=== PATIENT | male | born 1950 | race American Indian/Alaskan Native ===

== ENCOUNTER 2017-12-06 16:19 | Inpatient (IN) | payer MEDICARE, OTHER ==
[2017-12-06 17:23] LABS: Basophils # (Auto) 0.1 K/mm3 (0.0-0.1); Basophils % (Auto) 0.8 % (0.0-1.8); Eosinophils # (Auto) 0.1 K/mm3 (0.0-0.4); Eosinophils % (Auto) 1.7 % (0.0-4.3); Hematocrit 44.8 % (35.5-45.6); Hemoglobin 15.4 gm/dl (11.8-15.2); Lymphocytes # (Auto) 0.9 K/mm3 (1.2-5.4); Lymphocytes % (Auto) 11.4 % (13.4-35.0); Mean Corpuscular HGB Conc 34 % (32-34); Mean Corpuscular Hemoglobin 32 pg (28-32); Mean Corpuscular Volume 93 fl (84-94); Monocytes # (Auto) 0.4 K/mm3 (0.0-0.8); Monocytes % (Auto) 5.3 % (0.0-7.3); Platelet Count 308 K/mm3 (140-440); Red Blood Count 4.85 M/mm3 (3.65-5.03); Red Cell Distribution Width 12.3 % (13.2-15.2)
[2017-12-06 17:33] LABS: BUN/Creatinine Ratio 12; Blood Urea Nitrogen 12 mg/dL (9-20); Calcium 9.6 mg/dL (8.4-10.2); Hemolysis Index 7
[2017-12-06] MEDS ORDERED: ATROVENT IH ONE (17:42)
[2017-12-06] MEDS ORDERED: MAGNESIUM SULFATE 2GM/50ML 2 GM/50 ML BAG IV ONE (17:42)
[2017-12-06] MEDS ORDERED: PROVENTIL IH ONE (17:42)
--- NOTE | 2017-12-06 17:47 | Emergency Department Report ---
HPI - General Chief Complaint: Dyspnea/Respdistress Time Seen by Provider: 12/06/17 17:20 - HPI HPI: Room 3 The patient is a 66-year-old male presenting with a chief complaint of shortness of breath. The patient states the past 3 days he has had increased work of breathing. Reportedly nebulizes at home were not working. Patient denies cough fever or pain. Patient called EMS and was found to be hypoxic to 86% on room air. Patient was administered Solu-Medrol and albuterol en route to ED. Patient states she is feeling better at this moment Location: Lungs Duration: 3 days Quality: Shortness of breath Severity: Moderate Modifying factors: [see above] Context: [see above] Mode of transportation: [not driving] ED Past Medical Hx - Past Medical History Previous Medical History?: Yes Hx Asthma: Yes Hx COPD: Yes - Surgical History Past Surgical History?: Yes Additional Surgical History: Right lobectomy (indication unknown by patient). Partial bowel resection (secondary to "infection" per patient) - Family History Family history: no significant - Social History Smoking Status: Former Smoker (none 2 months) Substance Use Type: None - Medications Home Medications: Home Medications Medication Instructions Recorded Confirmed Last Taken Type ALBUTEROL Inhaler [Proair] 2 puff IH QID PRN #1 inhalation 12/06/17 Unknown Rx ALBUTEROL NEB's [Proventil 0.083% 2.5 mg IH TID PRN #90 ml 12/06/17 Unknown Rx NEBS] Prednisone [predniSONE 10 mg 10 mg PO .TAPER #1 tab.ds.pk 12/06/17 Unknown Rx (6-Day Pack, 21 Tabs)] ED Review of Systems ROS: Stated complaint: SOB Other details as noted in HPI Constitutional: denies: fever Eyes: denies: eye pain ENT: denies: throat pain Respiratory: shortness of breath, wheezing. denies: cough Cardiovascular: denies: chest pain Gastrointestinal: denies: abdominal pain Genitourinary: denies: dysuria Musculoskeletal: denies: back pain Neurological: denies: headache Physical Exam - Physical Exam Vital Signs: Vital Signs 12/06/17 12/06/17 16:45 16:53 Temperature 97.7 F 97.7 F Pulse Rate 90 90 Respiratory 22 22 Rate Blood Pressure 139/78 Blood Pressure 139/78 [Left] O2 Sat by Pulse 100 100 Oximetry Physical Exam: GENERAL: The patient is well-developed well-nourished male lying on stretcher not appearing to be in acute distress. [] HEENT: Normocephalic. Atraumatic. Extraocular motions are intact. Patient has moist mucous membranes. NECK: Supple. Trachea midline CHEST/LUNGS: Faint expiratory wheezing auscultated. There is no respiratory distress noted. HEART/CARDIOVASCULAR: Regular. There is no tachycardia. There is no gallop rub or murmur. ABDOMEN: Abdomen is soft, nontender. Patient has normal bowel sounds. There is no abdominal distention. SKIN: There is no rash. There is no edema. There is no diaphoresis. NEURO: The patient is awake, alert, and oriented. The patient is cooperative. The patient has normal speech MUSCULOSKELETAL: There is no evidence of acute injury. ED Course Vital Signs 12/06/17 12/06/17 16:45 16:53 Temperature 97.7 F 97.7 F Pulse Rate 90 90 Respiratory 22 22 Rate Blood Pressure 139/78 Blood Pressure 139/78 [Left] O2 Sat by Pulse 100 100 Oximetry - Reevaluation(s) Reevaluation #1: 12/06/17 18:24 Patient states he feels good ED Medical Decision Making - Lab Data Result diagrams: 12/06/17 17:09 12/06/17 17:09 Laboratory Tests 12/06/17 12/06/17 17:09 17:09 WBC 7.6 RBC 4.85 Hgb 15.4 H Hct 44.8 MCV 93 MCH 32 MCHC 34 RDW 12.3 L Plt Count 308 Lymph % (Auto) 11.4 L Lamar % (Auto) 5.3 Eos % (Auto) 1.7 Baso % (Auto) 0.8 Lymph # 0.9 L Lamar # 0.4 Eos # 0.1 Baso # 0.1 Seg Neutrophils % 80.8 H Seg Neutrophils # 6.2 Sodium 132 L Potassium 5.1 H Chloride 93.5 L Carbon Dioxide 33 H Anion Gap 11 BUN 12 Creatinine 1.0 Estimated GFR > 60 BUN/Creatinine Ratio 12 Glucose 100 Calcium 9.6 - EKG Data -: EKG Interpreted by Mn EKG shows normal: sinus rhythm Rate: normal - EKG Data When compared to previous EKG there are: previous EKG unavailable Interpretation: nonspecific ST-T wave milly (T-wave inversion in lead aVL) - Radiology Data Radiology results: image reviewed (chest x-ray) interpreted by me: Chest [id number] is slightly rotated. Slight paratracheal scarring appreciated. No definite focal infiltrates, no pneumothorax - Differential Diagnosis acute COPD exacerbation, pneumonia Critical care attestation.: If time is entered above; I have spent that time in minutes in the direct care of this critically ill patient, excluding procedure time. ED Disposition Clinical Impression: COPD exacerbation, Shortness of breath Disposition: DC-01 TO HOME OR SELFCARE Is pt being admited?: No Does the pt Need Aspirin: No Condition: Stable Instructions: Chronic Obstructive Pulmonary Disease (ED) Additional Instructions: Return to the emergency department immediately should you develop worsening symptoms, fever, inability to tolerate food or liquid or any other concerns. Prescriptions: ALBUTEROL Inhaler [Proair] 2 puff IH QID PRN #1 inhalation PRN Reason: Shortness Of Breath ALBUTEROL NEB's [Proventil 0.083% NEBS] 2.5 mg IH TID PRN #90 ml PRN Reason: Wheezing Prednisone [predniSONE 10 mg (6-Day Pack, 21 Tabs)] 10 mg PO .TAPER #1 tab.ds.pk Referrals: TERESO HENDERSON MD [Staff Physician] - 3-5 Days (Dr. Paul is a primary physician. Please follow up with him to be established as a patient) DAVE STEWART MD [Staff Physician] - 3-5 Days (Dr. Stewart is a gasket winder. Please follow-up with her for further evaluation) Time of Disposition: 18:27
--- NOTE | 2017-12-06 20:09 | History and Physical Report ---
History of Present Illness Chief complaint: My breathing is bad History of present illness: 66 YO Male with COPD, Asthma, presents to ED for evaluation. Pt states that he has experienced shortness of breath for the past 3 days with persistent symptoms over the same time frame. Pt symptoms have not improved with frequent nebulizer therapy. Pt acknowledges increased productive cough with yellow sputum , shortness of breath. EMS notified, and upon arrival the patient was found to have pulse oximetry of 88%. Pt transported to [facility] for evaluation. Pt seen and evaluated in ED and found have COPD Exacerbation complicated by acute respiratory failure. Pt admitted to medical floor. Pt denies fever, chills, CP, Palpitations, NVD, Syncope, BRBPR, Leg swelling, calf pain, hemoptysis, unintentional weight loss, or night sweats. Past History Past Medical History: COPD, other (asthma) Past Surgical History: Other (Lung surgery) Social history: . denies: smoking, alcohol abuse, prescription drug abuse Family history: hypertension Medications and Allergies Allergies Allergy/AdvReac Type Severity Reaction Status Date / Time No Known Allergies Allergy Unverified 12/06/17 17:00 Home Medications Medication Instructions Recorded Confirmed Last Taken Type ALBUTEROL Inhaler [Proair] 2 puff IH QID PRN #1 inhalation 12/06/17 Unknown Rx ALBUTEROL NEB's [Proventil 0.083% 2.5 mg IH TID PRN #90 ml 12/06/17 Unknown Rx NEBS] Prednisone [predniSONE 10 mg 10 mg PO .TAPER #1 tab.ds.pk 12/06/17 Unknown Rx (6-Day Pack, 21 Tabs)] Review of Systems Constitutional: no weight loss, no weight gain, no fever, no chills Ears, nose, mouth and throat: no ear pain, no ear discharge, no tinnitis, no decreased hearing, no nose pain, no nasal congestion, no nasal discharge Cardiovascular: no chest pain, no orthopnea, no palpitations, no rapid/ irregular heart beat, no edema Respiratory: cough with sputum, excessive sputum, shortness of breath, no hemoptysis Gastrointestinal: no abdominal pain, no nausea, no vomiting, no diarrhea Genitourinary Male: no hematuria, no flank pain, no discharge, no urinary frequency, no urinary hesitancy Rectal: no pain, no incontinence, no bleeding Musculoskeletal: no neck stiffness, no neck pain, no shooting arm pain, no arm numbness/tingling, no low back pain, no shooting leg pain Integumentary: no rash, no pruritis, no redness, no sores, no wounds, no jaundice Neurological: no transient paralysis, no paralysis, no weakness, no parathesias , no numbness, no tingling, no seizures Psychiatric: no anxiety, no memory loss, no change in sleep habits, no sleep disturbances, no insomnia Endocrine: no cold intolerance, no heat intolerance, no polyphagia, no excessive thirst, no polydipsia, no polyuria Hematologic/Lymphatic: no easy bruising, no easy bleeding, no lymphadenopathy, no lymphedema Allergic/Immunologic: no urticaria, no allergic rhinitis, no wheezing, no persistent infections, no anaphylaxis, no angioedema Exam - Constitutional Vitals: Temp Pulse Resp BP Pulse Ox 97.7 F 90 22 139/78 100 12/06/17 16:53 12/06/17 16:53 12/06/17 16:53 12/06/17 16:53 12/06/17 16:53 General appearance: Absent: no acute distress, mild distress, severe distress - EENT Eyes: Present: PERRL ENT: hearing intact, clear oral mucosa - Neck Neck: Present: supple, normal ROM - Respiratory Respiratory effort: labored Respiratory: bilateral: diminished - Cardiovascular Heart Sounds: Present: S1 & S2. Absent: rub, click - Extremities Extremities: pulses symmetrical, No edema Peripheral Pulses: within normal limits - Abdominal General gastrointestinal: Present: soft, non-tender, non-distended, normal bowel sounds Male genitourinary: Present: normal - Integumentary Integumentary: Present: clear, warm, dry - Musculoskeletal Musculoskeletal: gait normal, strength equal bilaterally - Psychiatric Psychiatric: appropriate mood/affect, intact judgment & insight - Neurologic Neurologic: CNII-XII intact, moves all extremities Results - Labs CBC & Chem 7: 12/06/17 17:09 12/06/17 17:09 Labs: Abnormal lab results 12/06/17 12/06/17 12/06/17 Range/Units 17:09 17:09 19:36 Hgb 15.4 H (11.8-15.2) gm/dl RDW 12.3 L (13.2-15.2) % Lymph % (Auto) 11.4 L (13.4-35.0) % Lymph # 0.9 L (1.2-5.4) K/mm3 Seg Neutrophils % 80.8 H (40.0-70.0) % POC ABG pH 7.349 L (7.35-7.45) POC ABG pCO2 56.6 H (35-45) POC ABG pO2 48 L (80-105) Sodium 132 L (137-145) mmol/L Potassium 5.1 H (3.6-5.0) mmol/L Chloride 93.5 L (98-107) mmol/L Carbon Dioxide 33 H (22-30) mmol/L Assessment and Plan - Patient Problems (1) COPD exacerbation Current Visit: Yes Status: Acute Plan to address problem: IV steroid therapy, supplemental oxygen, nebulizer therapy, empiric antibiotic therpay (2) Acute respiratory failure Current Visit: Yes Status: Acute Qualifiers: Respiratory failure complication: hypoxia Qualified Code(s): J96.01 - Acute respiratory failure with hypoxia Plan to address problem: Supplemental oxygen, nebulizer therapy, NIPPV as clinically indicated, pulse oximetry (3) DVT prophylaxis Current Visit: Yes Status: Acute Plan to address problem: scd to ble while in bed.
[2017-12-06] MEDS ORDERED: ZOFRAN IV PRN (20:10)
[2017-12-06] MEDS ORDERED: TYLENOL PO PRN (20:10)
[2017-12-06] MEDS ORDERED: SODIUM CHLORIDE FLUSH SYRINGE 10 ML IV PRN (20:10)
[2017-12-07] MEDS: SODIUM CHLORIDE FLUSH SYRINGE 10 ML IV SCH ×3 (00:30→22:36)
[2017-12-07] MEDS: PROVENTIL IH PRN ×3 (08:17→23:22)
[2017-12-07] MEDS ORDERED: ZITHROMAX 500 MG in NACL 0.9% 250ML 250 ML IV SCH (10:00)
--- NOTE | 2017-12-07 13:34 | Progress Note ---
Assessment and Plan /COPD exacerbation IV steroid therapy, supplemental oxygen, nebulizer therapy, empiric antibiotic therpay / Acute respiratory failure due to COPD exacerbation Supplemental oxygen, nebulizer therapy, NIPPV as clinically indicated, pulse oximetry /Hyperkalemia Order NaHco3, Calcium gluconate, insulin/D50, kayexalate repeat BMP / DVT prophylaxis scd to ble while in bed. Subjective Date of service: 12/07/17 Interval history: Pt seen and examined c/o SOB with minimal exertion Objective - Exam Narrative Exam: General appearance: Absent: no acute distress, mild distress, severe distress - EENT Eyes: Present: PERRL ENT: hearing intact, clear oral mucosa - Neck Neck: Present: supple, normal ROM - Respiratory Respiratory effort: labored Respiratory: bilateral: diminished - Cardiovascular Heart Sounds: Present: S1 & S2. Absent: rub, click - Extremities Extremities: pulses symmetrical, No edema Peripheral Pulses: within normal limits - Abdominal General gastrointestinal: Present: soft, non-tender, non-distended, normal bowel sounds Male genitourinary: Present: normal - Integumentary Integumentary: Present: clear, warm, dry - Musculoskeletal Musculoskeletal: gait normal, strength equal bilaterally - Psychiatric Psychiatric: appropriate mood/affect, intact judgment & insight - Neurologic Neurologic: CNII-XII intact, moves all extremities - Constitutional Vitals: Vital Signs - 12hr 12/07/17 12/07/17 12/07/17 08:02 08:03 08:22 Temperature 97.8 F 97.8 F Pulse Rate 90 88 Pulse Rate [ Anterior Bilateral Throughout] Respiratory 18 18 Rate Respiratory Rate [Anterior Bilateral Throughout] Blood Pressure 147/83 O2 Sat by Pulse 86 97 81 L Oximetry 12/07/17 12/07/17 08:24 08:36 Temperature Pulse Rate Pulse Rate [ 81 83 Anterior Bilateral Throughout] Respiratory Rate Respiratory 19 21 Rate [Anterior Bilateral Throughout] Blood Pressure O2 Sat by Pulse Oximetry - Labs CBC & Chem 7: 12/06/17 17:09 12/07/17 13:57 Labs: Abnormal lab results 12/06/17 12/06/17 12/06/17 Range/Units 17:09 17:09 19:36 Hgb 15.4 H (11.8-15.2) gm/dl RDW 12.3 L (13.2-15.2) % Lymph % (Auto) 11.4 L (13.4-35.0) % Lymph # 0.9 L (1.2-5.4) K/mm3 Seg Neutrophils % 80.8 H (40.0-70.0) % POC ABG pH 7.349 L (7.35-7.45) POC ABG pCO2 56.6 H (35-45) POC ABG pO2 48 L (80-105) Sodium 132 L (137-145) mmol/L Potassium 5.1 H (3.6-5.0) mmol/L Chloride 93.5 L (98-107) mmol/L Carbon Dioxide 33 H (22-30) mmol/L
[2017-12-07 14:34] LABS: BUN/Creatinine Ratio 21; Blood Urea Nitrogen 21 mg/dL (9-20); Calcium 9.3 mg/dL (8.4-10.2); Hemolysis Index 29
[2017-12-07] MEDS ORDERED: DULCOLAX PR PRN (21:48)
[2017-12-08] MEDS ORDERED: CALCIUM CHLORIDE 1,000 MG in NACL 0.9% 100 ML IV ONE (03:03)
[2017-12-08] MEDS ORDERED: KIONEX PO PRN (03:03)
[2017-12-08] MEDS ORDERED: D50W (25GM) Vial IV ONE (03:03)
[2017-12-08] MEDS ORDERED: HumuLIN R IV ONE (03:03)
[2017-12-08] MEDS ORDERED: SODIUM BICARBONATE IV ONE (03:03)
[2017-12-08] MEDS: PROVENTIL IH PRN (03:25)
[2017-12-08] MEDS ORDERED: D50W (25GM) Syringe IV ONE (05:00)
[2017-12-08] MEDS ORDERED: DUONEB *Not for PRN Use IH SCH (06:00)
[2017-12-08 08:04] LABS: BUN/Creatinine Ratio 25; Blood Urea Nitrogen 25 mg/dL (9-20); Calcium 11.1 mg/dL (8.4-10.2); Hemolysis Index 4
--- NOTE | 2017-12-08 09:08 | Progress Note ---
Assessment and Plan Assessment and plan: --Hyperkalemia Calcium chloride,kayexalate IV insulin and dextrose,closely monitor the levels --COPD exacerbation IV steroid therapy, supplemental oxygen, nebulizer therapy, empiric antibiotic therpay -- Acute hypoxic respiratory failure due to COPD exacerbation Supplemental oxygen, nebulizer therapy, NIPPV as clinically indicated, pulse oximetry -- DVT prophylaxis scd to ble while in bed. History Interval history: Patient seen and evaluated medical records reviewed Admitted with acute hypoxic respiratory failure COPD exacerbation Physical sites are better No new complaints Vital signs reviewed Hospitalist Physical - Constitutional Vitals: Temp Pulse Resp BP Pulse Ox 98.0 F 66 18 135/64 100 12/08/17 07:25 12/08/17 07:24 12/08/17 03:52 12/08/17 07:24 12/08/17 07:24 General appearance: Present: no acute distress, well-nourished - EENT Eyes: Present: PERRL, EOM intact - Neck Neck: Present: supple, normal ROM - Respiratory Respiratory effort: normal Respiratory: bilateral: diminished, wheezing, negative: rales, rhonchi - Cardiovascular Rhythm: regular Heart Sounds: Present: S1 & S2 - Extremities Extremities: no ischemia, No edema - Abdominal General gastrointestinal: soft, non-tender, non-distended, normal bowel sounds - Integumentary Integumentary: Present: clear, warm - Psychiatric Psychiatric: appropriate mood/affect, cooperative - Neurologic Neurologic: CNII-XII intact, moves all extremities Results - Labs CBC & Chem 7: 12/06/17 17:09 12/08/17 05:58 Labs: Laboratory Last Values WBC 7.6 K/mm3 (4.5-11.0) 12/06/17 17:09 RBC 4.85 M/mm3 (3.65-5.03) 12/06/17 17:09 Hgb 15.4 gm/dl (11.8-15.2) H 12/06/17 17:09 Hct 44.8 % (35.5-45.6) 12/06/17 17:09 MCV 93 fl (84-94) 12/06/17 17:09 MCH 32 pg (28-32) 12/06/17 17:09 MCHC 34 % (32-34) 12/06/17 17:09 RDW 12.3 % (13.2-15.2) L 12/06/17 17:09 Plt Count 308 K/mm3 (140-440) 12/06/17 17:09 Lymph % (Auto) 11.4 % (13.4-35.0) L 12/06/17 17:09 Major % (Auto) 5.3 % (0.0-7.3) 12/06/17 17:09 Eos % (Auto) 1.7 % (0.0-4.3) 12/06/17 17:09 Baso % (Auto) 0.8 % (0.0-1.8) 12/06/17 17:09 Lymph # 0.9 K/mm3 (1.2-5.4) L 12/06/17 17:09 Major # 0.4 K/mm3 (0.0-0.8) 12/06/17 17:09 Eos # 0.1 K/mm3 (0.0-0.4) 12/06/17 17:09 Baso # 0.1 K/mm3 (0.0-0.1) 12/06/17 17:09 Seg Neutrophils % 80.8 % (40.0-70.0) H 12/06/17 17:09 Seg Neutrophils # 6.2 K/mm3 (1.8-7.7) 12/06/17 17:09 POC ABG pH 7.349 (7.35-7.45) L 12/06/17 19:36 POC ABG pCO2 56.6 (35-45) H 12/06/17 19:36 POC ABG pO2 48 (80-105) L 12/06/17 19:36 POC ABG HCO3 31.1 12/06/17 19:36 POC ABG Total CO2 33 12/06/17 19:36 POC ABG O2 Sat 80 12/06/17 19:36 POC ABG Base Excess 6 12/06/17 19:36 FiO2 21 % 12/06/17 19:36 Sodium 131 mmol/L (137-145) L 12/08/17 05:58 Potassium 5.6 mmol/L (3.6-5.0) H 12/08/17 05:58 Chloride 83.3 mmol/L (98-107) L 12/08/17 05:58 Carbon Dioxide 36 mmol/L (22-30) H D 12/08/17 05:58 Anion Gap 17 mmol/L 12/08/17 05:58 BUN 25 mg/dL (9-20) H 12/08/17 05:58 Creatinine 1.0 mg/dL (0.8-1.5) 12/08/17 05:58 Estimated GFR > 60 ml/min 12/08/17 05:58 BUN/Creatinine Ratio 25 % 12/08/17 05:58 Glucose 145 mg/dL (75-100) H 12/08/17 05:58 Calcium 11.1 mg/dL (8.4-10.2) H D 12/08/17 05:58
[2017-12-08] MEDS: DUONEB *Not for PRN Use IH SCH ×3 (09:26→20:12)
[2017-12-08] MEDS: SODIUM CHLORIDE FLUSH SYRINGE 10 ML IV SCH ×2 (10:58→22:20)
[2017-12-08] MEDS: ZITHROMAX PO SCH (10:58)
--- NOTE | 2017-12-08 11:05 | Consultation ---
History of Present Illness Consult date: 12/08/17 Requesting physician: LYNDA AGUILERA Reason for consult: COPD, hypoxemia History of present illness: 66 YO Male with COPD, Asthma, presents to ED for evaluation. Pt states that he has experienced shortness of breath for the past 3 days with persistent symptoms over the same time frame. Pt symptoms have not improved with frequent nebulizer therapy. Pt acknowledges increased productive cough with yellow sputum , shortness of breath. EMS notified, and upon arrival the patient was found to have pulse oximetry of 88%. Pt transported to [facility] for evaluation. Pt seen and evaluated in ED and found have COPD Exacerbation complicated by acute respiratory failure. Pt admitted to medical floor. Pt denies fever, chills, CP, Palpitations, NVD, Syncope, BRBPR, Leg swelling, calf pain, hemoptysis, unintentional weight loss, or night sweats. Patient seen and examined. Vitals, labs, medications, chart and imaging reviewed. REVIEW OF SYSTEMS Constitutional: no weight loss, no weight gain, no fever, no chills Ears, nose, mouth and throat: no ear pain, no ear discharge, no tinnitis, no decreased hearing, no nose pain, no nasal congestion, no nasal discharge Cardiovascular: no chest pain, no orthopnea, no palpitations, no rapid/ irregular heart beat, no edema Respiratory: cough with sputum, excessive sputum, shortness of breath, no hemoptysis Gastrointestinal: no abdominal pain, no nausea, no vomiting, no diarrhea Genitourinary Male: no hematuria, no flank pain, no discharge, no urinary frequency, no urinary hesitancy Rectal: no pain, no incontinence, no bleeding Musculoskeletal: no neck stiffness, no neck pain, no shooting arm pain, no arm numbness/tingling, no low back pain, no shooting leg pain Integumentary: no rash, no pruritis, no redness, no sores, no wounds, no jaundice Neurological: no transient paralysis, no paralysis, no weakness, no parathesias , no numbness, no tingling, no seizures Psychiatric: no anxiety, no memory loss, no change in sleep habits, no sleep disturbances, no insomnia Endocrine: no cold intolerance, no heat intolerance, no polyphagia, no excessive thirst, no polydipsia, no polyuria Hematologic/Lymphatic: no easy bruising, no easy bleeding, no lymphadenopathy, no lymphedema Allergic/Immunologic: no urticaria, no allergic rhinitis, no wheezing, no persistent infections, no anaphylaxis, no angioedema Past History Past Medical History: COPD, other (asthma) Past Surgical History: Other (Lung surgery) Social history: . denies: smoking, alcohol abuse, prescription drug abuse Family history: hypertension Medications and Allergies Allergies Allergy/AdvReac Type Severity Reaction Status Date / Time No Known Allergies Allergy Unverified 12/06/17 17:00 Home Medications Medication Instructions Recorded Confirmed Last Taken Type ALBUTEROL Inhaler [Proair] 2 puff IH QID PRN #1 inhalation 12/06/17 Unknown Rx ALBUTEROL NEB's [Proventil 0.083% 2.5 mg IH TID PRN #90 ml 12/06/17 Unknown Rx NEBS] Prednisone [predniSONE 10 mg 10 mg PO .TAPER #1 tab.ds.pk 12/06/17 Unknown Rx (6-Day Pack, 21 Tabs)] ALBUTEROL Inhaler [ProAir HFA 2 puff IH QID PRN #1 inhalation 12/11/17 Unknown Rx Inhaler] Azithromycin [Zithromax Z-LORENZO] 0 mg PO DAILY #1 tab 12/11/17 Unknown Rx Prednisone [predniSONE 10 mg 10 mg PO .TAPER #1 tab.ds.pk 12/11/17 Unknown Rx (6-Day Pack, 21 Tabs)] Active Meds: Active Medications Acetaminophen (Tylenol) 650 mg PO Q4H PRN PRN Reason: Pain MILD(1-3)/Fever >100.5/LONG Albuterol (Proventil) 2.5 mg IH Q4HRT PRN PRN Reason: Shortness Of Breath Last Admin: 12/08/17 03:25 Dose: 2.5 mg Albuterol/Ipratropium (Duoneb *Not For Prn Use*) 1 ampul IH Q6HRT [facility] Last Admin: 12/08/17 09:26 Dose: 1 ampul Azithromycin (Zithromax) 500 mg PO QDAY [facility] Last Admin: 12/08/17 10:58 Dose: 500 mg Bisacodyl (Dulcolax) 10 mg MS QDAY PRN PRN Reason: Constipation Enoxaparin Sodium (Lovenox) 40 mg SUB-Q QDAY@2200 [facility] Methylprednisolone Sodium Succinate (Solu-Medrol) 40 mg IV Q8HR [facility] Last Admin: 12/08/17 06:39 Dose: 40 mg Ondansetron HCl (Zofran) 4 mg IV Q8H PRN PRN Reason: Nausea And Vomiting Sodium Chloride (Sodium Chloride Flush Syringe 10 Ml) 10 ml IV BID [facility] Last Admin: 12/08/17 10:58 Dose: 10 ml Sodium Chloride (Sodium Chloride Flush Syringe 10 Ml) 10 ml IV PRN PRN PRN Reason: LINE FLUSH Sodium Polystyrene Sulfonate (Kionex) 15 gm PO Q6H PRN PRN Reason: Hyperkalemia Physical Examination Vital signs: Vital Signs Temp Pulse Resp BP Pulse Ox 97.7 F 90 22 139/78 100 12/06/17 16:45 12/06/17 16:45 12/06/17 16:45 12/06/17 16:45 12/06/17 16:45 Constitutional: alert, appears uncomfortable, other (elderly AAM, atraumatic, normocephalic with mild to moderately increased work of breathing at rest) Eyes: non-icteric ENT: oropharynx moist Neck: supple, no JVD Effort: mildly labored Ascultation: Bilateral: diminished breath sounds, wheezes (expiratory) Percussion: Bilateral: not dull Cardiovascular: regular rate and rhythm, other (No R/M) Gastrointestinal: normoactive bowel sounds, soft, non-tender, non-distended Integumentary: normal Extremities: no cyanosis, no edema, pulses normal, no ischemia or petechiae Neurologic: normal mental status, non-focal exam, pupils equal and round, motor strength normal and Psychiatric: mood appropriate, affect normal Results - Laboratory Findings CBC and BMP: 12/06/17 17:09 12/11/17 06:34 ABG POC ABG pH 7.349 (7.35-7.45) L 12/06/17 19:36 POC ABG pCO2 56.6 (35-45) H 12/06/17 19:36 POC ABG pO2 48 (80-105) L 12/06/17 19:36 POC ABG HCO3 31.1 12/06/17 19:36 POC ABG Total CO2 33 12/06/17 19:36 POC ABG O2 Sat 80 12/06/17 19:36 Abnormal lab findings: Abnormal Labs 12/06/17 12/06/17 12/06/17 17:09 17:09 19:36 Hgb 15.4 H RDW 12.3 L Lymph % (Auto) 11.4 L Lymph # 0.9 L Seg Neutrophils % 80.8 H POC ABG pH 7.349 L POC ABG pCO2 56.6 H POC ABG pO2 48 L Sodium 132 L Potassium 5.1 H Chloride 93.5 L Carbon Dioxide 33 H BUN Glucose Calcium 12/07/17 12/08/17 13:57 05:58 Hgb RDW Lymph % (Auto) Lymph # Seg Neutrophils % POC ABG pH POC ABG pCO2 POC ABG pO2 Sodium 133 L 131 L Potassium 6.0 H 5.6 H Chloride 93.5 L 83.3 L Carbon Dioxide 36 H D BUN 21 H 25 H Glucose 168 H 145 H Calcium 11.1 H D - Diagnostic Findings Chest x-ray: image reviewed Assessment and Plan Acute hypoxemic/hypercapnic respiratory failure AE-COPD Hyperkalemia Metabolic alkalosis Tobacco abuse disorder Abnormal CXR -Continue with supplemental oxygen -NIPPV as indicated -Antibiotics -Bronchodilators -Steroids with accucheck and glycemic control -VTE prophylaxis -Smoking cessation counselling. Encouraged to stay quit - PT/OT/Mobility -
[2017-12-08] MEDS: LOVENOX SUB-Q SCH (22:30)
[2017-12-09] MEDS: DUONEB *Not for PRN Use IH SCH ×4 (02:41→20:14)
[2017-12-09 06:58] LABS: BUN/Creatinine Ratio 30; Blood Urea Nitrogen 30 mg/dL (9-20); Calcium 10.2 mg/dL (8.4-10.2); Hemolysis Index 9
[2017-12-09] MEDS: SODIUM CHLORIDE FLUSH SYRINGE 10 ML IV SCH (09:43)
[2017-12-09] MEDS: ZITHROMAX PO SCH (09:43)
[2017-12-09] MEDS ORDERED: KIONEX PO ONE (11:40)
--- NOTE | 2017-12-09 11:42 | Progress Note ---
Assessment and Plan Assessment and plan: --Hyperkalemia Kayexalate, closely monitor potassium levels and adjust treatment --COPD exacerbation Tapering doses of IV steroid therapy, supplemental oxygen, nebulizer therapy, empiric antibiotic therpay --Acute bronchitis/pneumonitis; due to acute exacerbation of COPD Continue empiric antibiotics -- Acute hypoxic respiratory failure due to COPD exacerbation, Supplemental oxygen, nebulizer therapy, NIPPV as clinically indicated, pulse oximetry --Patient is hypoxemic, room air and ambulating O2 sats less than 87% DC planning per case management, home health service Patient needs Home oxygen, 2-3 L nasal cannula oxygen at discharge -- DVT prophylaxis scd to ble while in bed. Possible discharge in 1-2 days if stable History Interval history: Patient seen and examined medical records reviewed Feels slightly better Complains of mild shortness of breath Looks chronically ill and cachectic Vital signs reviewed Hospitalist Physical - Constitutional Vitals: Temp Pulse Resp BP Pulse Ox 97.9 F 86 18 139/79 97 12/09/17 07:44 12/09/17 09:24 12/09/17 09:24 12/09/17 07:44 12/09/17 09:14 General appearance: Present: no acute distress, cachectic, disheveled - EENT Eyes: Present: PERRL, EOM intact - Neck Neck: Present: supple, normal ROM - Respiratory Respiratory effort: normal Respiratory: bilateral: diminished, wheezing, negative: rales, rhonchi - Cardiovascular Rhythm: regular Heart Sounds: Present: S1 & S2 - Extremities Extremities: no ischemia, No edema - Abdominal General gastrointestinal: soft, non-tender, non-distended, normal bowel sounds - Integumentary Integumentary: Present: clear, warm - Psychiatric Psychiatric: appropriate mood/affect, cooperative - Neurologic Neurologic: moves all extremities Results - Labs CBC & Chem 7: 12/06/17 17:09 12/09/17 05:53 Labs: Laboratory Last Values WBC 7.6 K/mm3 (4.5-11.0) 12/06/17 17:09 RBC 4.85 M/mm3 (3.65-5.03) 12/06/17 17:09 Hgb 15.4 gm/dl (11.8-15.2) H 12/06/17 17:09 Hct 44.8 % (35.5-45.6) 12/06/17 17:09 MCV 93 fl (84-94) 12/06/17 17:09 MCH 32 pg (28-32) 12/06/17 17:09 MCHC 34 % (32-34) 12/06/17 17:09 RDW 12.3 % (13.2-15.2) L 12/06/17 17:09 Plt Count 308 K/mm3 (140-440) 12/06/17 17:09 Lymph % (Auto) 11.4 % (13.4-35.0) L 12/06/17 17:09 [place] % (Auto) 5.3 % (0.0-7.3) 12/06/17 17:09 Eos % (Auto) 1.7 % (0.0-4.3) 12/06/17 17:09 Baso % (Auto) 0.8 % (0.0-1.8) 12/06/17 17:09 Lymph # 0.9 K/mm3 (1.2-5.4) L 12/06/17 17:09 [place] # 0.4 K/mm3 (0.0-0.8) 12/06/17 17:09 Eos # 0.1 K/mm3 (0.0-0.4) 12/06/17 17:09 Baso # 0.1 K/mm3 (0.0-0.1) 12/06/17 17:09 Seg Neutrophils % 80.8 % (40.0-70.0) H 12/06/17 17:09 Seg Neutrophils # 6.2 K/mm3 (1.8-7.7) 12/06/17 17:09 POC ABG pH 7.349 (7.35-7.45) L 12/06/17 19:36 POC ABG pCO2 56.6 (35-45) H 12/06/17 19:36 POC ABG pO2 48 (80-105) L 12/06/17 19:36 POC ABG HCO3 31.1 12/06/17 19:36 POC ABG Total CO2 33 12/06/17 19:36 POC ABG O2 Sat 80 12/06/17 19:36 POC ABG Base Excess 6 12/06/17 19:36 FiO2 21 % 12/06/17 19:36 Sodium 131 mmol/L (137-145) L 12/09/17 05:53 Potassium 5.9 mmol/L (3.6-5.0) H 12/09/17 05:53 Chloride 84.4 mmol/L (98-107) L 12/09/17 05:53 Carbon Dioxide 35 mmol/L (22-30) H 12/09/17 05:53 Anion Gap 18 mmol/L 12/09/17 05:53 BUN 30 mg/dL (9-20) H 12/09/17 05:53 Creatinine 1.0 mg/dL (0.8-1.5) 12/09/17 05:53 Estimated GFR > 60 ml/min 12/09/17 05:53 BUN/Creatinine Ratio 30 % 12/09/17 05:53 Glucose 106 mg/dL (75-100) H 12/09/17 05:53 Calcium 10.2 mg/dL (8.4-10.2) 12/09/17 05:53 Magnesium 2.40 mg/dL (1.7-2.3) H 12/09/17 05:53
[2017-12-09] MEDS ORDERED: MILK OF MAGNESIA PO PRN (11:43)
--- NOTE | 2017-12-09 12:05 | Progress Note ---
Assessment and Plan Assessment and plan: --Hyperkalemia Calcium chloride,kayexalate IV insulin and dextrose,closely monitor the levels --COPD exacerbation IV steroid therapy, supplemental oxygen, nebulizer therapy, empiric antibiotic therpay -- Acute hypoxic respiratory failure due to COPD exacerbation Supplemental oxygen, nebulizer therapy, NIPPV as clinically indicated, pulse oximetry -- DVT prophylaxis scd to ble while in bed. Hospitalist Physical - Constitutional Vitals: Temp Pulse Resp BP Pulse Ox 97.9 F 86 18 139/79 97 12/09/17 07:44 12/09/17 09:24 12/09/17 09:24 12/09/17 07:44 12/09/17 09:14 General appearance: Present: no acute distress, well-nourished Results - Labs CBC & Chem 7: 12/06/17 17:09 12/09/17 05:53 Labs: Laboratory Last Values WBC 7.6 K/mm3 (4.5-11.0) 12/06/17 17:09 RBC 4.85 M/mm3 (3.65-5.03) 12/06/17 17:09 Hgb 15.4 gm/dl (11.8-15.2) H 12/06/17 17:09 Hct 44.8 % (35.5-45.6) 12/06/17 17:09 MCV 93 fl (84-94) 12/06/17 17:09 MCH 32 pg (28-32) 12/06/17 17:09 MCHC 34 % (32-34) 12/06/17 17:09 RDW 12.3 % (13.2-15.2) L 12/06/17 17:09 Plt Count 308 K/mm3 (140-440) 12/06/17 17:09 Lymph % (Auto) 11.4 % (13.4-35.0) L 12/06/17 17:09 [place] % (Auto) 5.3 % (0.0-7.3) 12/06/17 17:09 Eos % (Auto) 1.7 % (0.0-4.3) 12/06/17 17:09 Baso % (Auto) 0.8 % (0.0-1.8) 12/06/17 17:09 Lymph # 0.9 K/mm3 (1.2-5.4) L 12/06/17 17:09 [place] # 0.4 K/mm3 (0.0-0.8) 12/06/17 17:09 Eos # 0.1 K/mm3 (0.0-0.4) 12/06/17 17:09 Baso # 0.1 K/mm3 (0.0-0.1) 12/06/17 17:09 Seg Neutrophils % 80.8 % (40.0-70.0) H 12/06/17 17:09 Seg Neutrophils # 6.2 K/mm3 (1.8-7.7) 12/06/17 17:09 POC ABG pH 7.349 (7.35-7.45) L 12/06/17 19:36 POC ABG pCO2 56.6 (35-45) H 12/06/17 19:36 POC ABG pO2 48 (80-105) L 12/06/17 19:36 POC ABG HCO3 31.1 12/06/17 19:36 POC ABG Total CO2 33 12/06/17 19:36 POC ABG O2 Sat 80 12/06/17 19:36 POC ABG Base Excess 6 12/06/17 19:36 FiO2 21 % 12/06/17 19:36 Sodium 131 mmol/L (137-145) L 12/09/17 05:53 Potassium 5.9 mmol/L (3.6-5.0) H 12/09/17 05:53 Chloride 84.4 mmol/L (98-107) L 12/09/17 05:53 Carbon Dioxide 35 mmol/L (22-30) H 12/09/17 05:53 Anion Gap 18 mmol/L 12/09/17 05:53 BUN 30 mg/dL (9-20) H 12/09/17 05:53 Creatinine 1.0 mg/dL (0.8-1.5) 12/09/17 05:53 Estimated GFR > 60 ml/min 12/09/17 05:53 BUN/Creatinine Ratio 30 % 12/09/17 05:53 Glucose 106 mg/dL (75-100) H 12/09/17 05:53 Calcium 10.2 mg/dL (8.4-10.2) 12/09/17 05:53 Magnesium 2.40 mg/dL (1.7-2.3) H 12/09/17 05:53
--- NOTE | 2017-12-09 14:07 | Progress Note ---
Assessment and Plan Acute hypoxemic/hypercapnic respiratory failure AE-COPD Hyperkalemia Metabolic alkalosis Tobacco abuse disorder Abnormal CXR -Continue with supplemental oxygen - Continue NIPPV as indicated - Continue Antibiotics - Continue Bronchodilators -Steroids with accucheck and glycemic control -VTE prophylaxis -Smoking cessation counselling. Encouraged to stay quit - PT/OT/Mobility - Needs outpatient pulmonary follow up within 7 days of discharge -Patient and his daughter updated re care plan. -Home oxygen evaluation on discharge -Discussed care plan with hospitalist service, RT and RN Subjective Date of service: 12/09/17 Principal diagnosis: Acute hypoxic respiratory failure, COPD with acute exacerbation Interval history: Seen and examined at bedside; 24hour events reviewed; nursing and respiratory care staff consulted; no adverse overnight events reported to me; still SOB; complains of ANDRES with 5-10 yards walk; no acute chest pains; feels betterNo hemoptysis Objective - Exam Narrative Exam: General appearance: Absent: no acute distress, mild distress - EENT Eyes: Present: PERRL ENT: hearing intact, clear oral mucosa - Neck Neck: Present: supple, normal ROM - Respiratory Respiratory effort: labored Respiratory: bilateral: diminished, expiratory wheeze - Cardiovascular Heart Sounds: Present: S1 & S2. Absent: rub, click - Extremities Extremities: pulses symmetrical, No edema Peripheral Pulses: within normal limits - Abdominal General gastrointestinal: Present: soft, non-tender, non-distended, normal bowel sounds Male genitourinary: Present: normal - Integumentary Integumentary: Present: clear, warm, dry - Musculoskeletal Musculoskeletal: gait normal, strength equal bilaterally - Psychiatric Psychiatric: appropriate mood/affect, intact judgment & insight - Neurologic Neurologic: CNII-XII intact, moves all extremities Vital Signs - 12hr 12/09/17 12/09/17 12/09/17 02:42 07:44 09:14 Temperature 97.9 F Pulse Rate 72 Pulse Rate [ 86 80 Anterior Bilateral Throughout] Respiratory 18 Rate Respiratory 18 18 Rate [Anterior Bilateral Throughout] Blood Pressure 139/79 O2 Sat by Pulse 96 97 Oximetry 12/09/17 12/09/17 12/09/17 09:24 13:23 13:33 Temperature Pulse Rate Pulse Rate [ 86 98 H 94 H Anterior Bilateral Throughout] Respiratory Rate Respiratory 18 20 20 Rate [Anterior Bilateral Throughout] Blood Pressure O2 Sat by Pulse Oximetry CBC and BMP: 12/06/17 17:09 12/11/17 06:34 ABG, PT/INR, D-dimer: ABG POC ABG pH 7.349 (7.35-7.45) L 12/06/17 19:36 POC ABG pCO2 56.6 (35-45) H 12/06/17 19:36 POC ABG pO2 48 (80-105) L 12/06/17 19:36 POC ABG HCO3 31.1 12/06/17 19:36 POC ABG Total CO2 33 12/06/17 19:36 POC ABG O2 Sat 80 12/06/17 19:36 Abnormal lab findings: Abnormal Labs 12/06/17 12/06/17 12/06/17 17:09 17:09 19:36 Hgb 15.4 H RDW 12.3 L Lymph % (Auto) 11.4 L Lymph # 0.9 L Seg Neutrophils % 80.8 H POC ABG pH 7.349 L POC ABG pCO2 56.6 H POC ABG pO2 48 L Sodium 132 L Potassium 5.1 H Chloride 93.5 L Carbon Dioxide 33 H BUN Glucose Calcium Magnesium 12/07/17 12/08/17 12/09/17 13:57 05:58 05:53 Hgb RDW Lymph % (Auto) Lymph # Seg Neutrophils % POC ABG pH POC ABG pCO2 POC ABG pO2 Sodium 133 L 131 L 131 L Potassium 6.0 H 5.6 H 5.9 H Chloride 93.5 L 83.3 L 84.4 L Carbon Dioxide 36 H D 35 H BUN 21 H 25 H 30 H Glucose 168 H 145 H 106 H Calcium 11.1 H D Magnesium 2.40 H Chest x-ray: image reviewed Allied health notes reviewed: RT
[2017-12-09] MEDS ORDERED: CITRATE OF MAGNESIA PO ONE (14:28)
[2017-12-10] MEDS: LOVENOX SUB-Q SCH ×2 (00:45→22:44)
[2017-12-10] MEDS: DUONEB *Not for PRN Use IH SCH ×4 (02:02→21:59)
[2017-12-10 07:27] LABS: BUN/Creatinine Ratio 26; Blood Urea Nitrogen 26 mg/dL (9-20); Calcium 9.4 mg/dL (8.4-10.2); Hemolysis Index 4
[2017-12-10] MEDS: ZITHROMAX PO SCH (11:13)
[2017-12-10] MEDS: KIONEX PO ONE ×2 (11:14→12:32)
[2017-12-10] MEDS: SODIUM CHLORIDE FLUSH SYRINGE 10 ML IV SCH (11:16)
--- NOTE | 2017-12-10 14:02 | Progress Note ---
Assessment and Plan Acute Hypoxemic Respiratory Failure Acute COPD exacerbation Hyperkalemia Abnormal CXR - kayexalate given - continue systemic steroids (increase to 40mg IV bid X 2 doses then overlap with p.o. prednisone in am) - Added brovana & pulmicort - continue empiric CAP AB's - add pepcid for GI prophylaxis - Flu & pneumovax per protocol - continued tobacco abstinence encouraged ..... re-evaluate in am & prn ... 25' Subjective Date of service: 12/10/17 Principal diagnosis: Acute hypoxemic respiratory failure, COPD with acute exacerbation Interval history: Patient is seen today for: Acute hypoxemic respiratory failure, COPD with acute exacerbation Seen and examined at bedside; 24hour events reviewed; nursing and respiratory care staff consulted; no adverse overnight events reported to me; still SOB; complains of ANDRES with 5-10 yards walk; no acute chest pains; states that he quit smoking 3 months prior; No hemoptysis Objective Vital Signs - 12hr 12/10/17 12/10/17 12/10/17 02:13 07:32 07:42 Temperature Pulse Rate Pulse Rate [ 69 82 75 Anterior Bilateral Throughout] Respiratory Rate Respiratory 18 20 20 Rate [Anterior Bilateral Throughout] Blood Pressure O2 Sat by Pulse 98 Oximetry 12/10/17 08:01 Temperature 98.3 F Pulse Rate 76 Pulse Rate [ Anterior Bilateral Throughout] Respiratory 20 Rate Respiratory Rate [Anterior Bilateral Throughout] Blood Pressure 135/79 O2 Sat by Pulse 97 Oximetry Constitutional: alert, appears uncomfortable, other (elderly AAM, atraumatic, normocephalic with mild to moderately increased Swork of breathing at rest) Eyes: non-icteric ENT: oropharynx moist Neck: supple, no JVD Effort: mildly labored Ascultation: Bilateral: diminished breath sounds, wheezes (expiratory) Percussion: Bilateral: not dull Cardiovascular: regular rate and rhythm, other (No R/M) Gastrointestinal: normoactive bowel sounds, soft, non-tender, non-distended Integumentary: normal Extremities: no cyanosis, no edema, pulses normal, no ischemia or petechiae Neurologic: normal mental status, non-focal exam, pupils equal and round, motor strength normal and Psychiatric: mood appropriate, affect normal CBC and BMP: 12/06/17 17:09 12/10/17 06:14 ABG, PT/INR, D-dimer: ABG POC ABG pH 7.349 (7.35-7.45) L 12/06/17 19:36 POC ABG pCO2 56.6 (35-45) H 12/06/17 19:36 POC ABG pO2 48 (80-105) L 12/06/17 19:36 POC ABG HCO3 31.1 12/06/17 19:36 POC ABG Total CO2 33 12/06/17 19:36 POC ABG O2 Sat 80 12/06/17 19:36 Abnormal lab findings: Abnormal Labs 12/06/17 12/06/17 12/06/17 17:09 17:09 19:36 Hgb 15.4 H RDW 12.3 L Lymph % (Auto) 11.4 L Lymph # 0.9 L Seg Neutrophils % 80.8 H POC ABG pH 7.349 L POC ABG pCO2 56.6 H POC ABG pO2 48 L Sodium 132 L Potassium 5.1 H Chloride 93.5 L Carbon Dioxide 33 H BUN Glucose Calcium Magnesium 12/07/17 12/08/17 12/09/17 13:57 05:58 05:53 Hgb RDW Lymph % (Auto) Lymph # Seg Neutrophils % POC ABG pH POC ABG pCO2 POC ABG pO2 Sodium 133 L 131 L 131 L Potassium 6.0 H 5.6 H 5.9 H Chloride 93.5 L 83.3 L 84.4 L Carbon Dioxide 36 H D 35 H BUN 21 H 25 H 30 H Glucose 168 H 145 H 106 H Calcium 11.1 H D Magnesium 2.40 H 12/10/17 06:14 Hgb RDW Lymph % (Auto) Lymph # Seg Neutrophils % POC ABG pH POC ABG pCO2 POC ABG pO2 Sodium 133 L Potassium 5.4 H Chloride 83.1 L Carbon Dioxide 40 H BUN 26 H Glucose 108 H Calcium Magnesium 3.00 H Chest x-ray: image reviewed (severe emphysema with tenting of Right adolph- diaphragm) Allied health notes reviewed: nursing
--- NOTE | 2017-12-10 14:17 | XRay Report ---
FINAL REPORT EXAM: XR CHEST 1V AP HISTORY: Shortness of breath TECHNIQUE: Frontal chest radiograph. PRIORS: None. FINDINGS: Multiple objects overlie the patient. The cardiac silhouette is nonenlarged. The pulmonary arteries appear prominent in size. No focal consolidation. The lungs are hyperinflated. No pleural effusion. No pneumothorax. No acute osseous abnormality. IMPRESSION: No acute cardiopulmonary process. Findings of COPD. Prominent pulmonary arteries may be related to pulmonary arterial hypertension.
--- NOTE | 2017-12-10 18:06 | Progress Note ---
Assessment and Plan Assessment and plan: --Hyperkalemia; patient has bottles of Gatorade at the bedside Advised not to drink in view of hyperkalemia Kayexalate, closely monitor potassium levels and adjust treatment --COPD exacerbation Tapering doses of IV steroid therapy, supplemental oxygen, nebulizer therapy, empiric antibiotic therpay --Acute bronchitis/pneumonitis; due to acute exacerbation of COPD Continue empiric antibiotics -- Acute hypoxic respiratory failure due to COPD exacerbation, Supplemental oxygen, nebulizer therapy, NIPPV as clinically indicated, pulse oximetry --Patient is hypoxemic, room air and ambulating O2 sats less than 87% DC planning per case management, home health service Patient needs Home oxygen, 2-3 L nasal cannula oxygen at discharge -- DVT prophylaxis scd to ble while in bed. Possible discharge in 1-2 days if stable Case management to set up home oxygen History Interval history: Patient seen and examined medical records reviewed Patient has persistent hyperkalemia Has bottles of Gatorade at the bedside, strongly advised not to drink Gatorade In view of hyperkalemia Denies any chest pain or shortness of breath Vital signs reviewed Hospitalist Physical - Constitutional Vitals: Temp Pulse Resp BP Pulse Ox 97.9 F 72 20 150/88 85 12/10/17 15:41 12/10/17 15:41 12/10/17 15:41 12/10/17 15:41 12/10/17 15:41 General appearance: Present: no acute distress, cachectic, disheveled - EENT Eyes: Present: PERRL, EOM intact - Neck Neck: Present: supple, normal ROM - Respiratory Respiratory: bilateral: diminished, negative: rales, rhonchi, wheezing - Cardiovascular Rhythm: regular Heart Sounds: Present: S1 & S2 - Extremities Extremities: no ischemia, No edema - Abdominal General gastrointestinal: soft, non-tender, non-distended, normal bowel sounds - Integumentary Integumentary: Present: clear, warm - Psychiatric Psychiatric: appropriate mood/affect, cooperative - Neurologic Neurologic: CNII-XII intact, moves all extremities Results - Labs CBC & Chem 7: 12/06/17 17:09 12/10/17 06:14 Labs: Laboratory Last Values WBC 7.6 K/mm3 (4.5-11.0) 12/06/17 17:09 RBC 4.85 M/mm3 (3.65-5.03) 12/06/17 17:09 Hgb 15.4 gm/dl (11.8-15.2) H 12/06/17 17:09 Hct 44.8 % (35.5-45.6) 12/06/17 17:09 MCV 93 fl (84-94) 12/06/17 17:09 MCH 32 pg (28-32) 12/06/17 17:09 MCHC 34 % (32-34) 12/06/17 17:09 RDW 12.3 % (13.2-15.2) L 12/06/17 17:09 Plt Count 308 K/mm3 (140-440) 12/06/17 17:09 Lymph % (Auto) 11.4 % (13.4-35.0) L 12/06/17 17:09 [place] % (Auto) 5.3 % (0.0-7.3) 12/06/17 17:09 Eos % (Auto) 1.7 % (0.0-4.3) 12/06/17 17:09 Baso % (Auto) 0.8 % (0.0-1.8) 12/06/17 17:09 Lymph # 0.9 K/mm3 (1.2-5.4) L 12/06/17 17:09 [place] # 0.4 K/mm3 (0.0-0.8) 12/06/17 17:09 Eos # 0.1 K/mm3 (0.0-0.4) 12/06/17 17:09 Baso # 0.1 K/mm3 (0.0-0.1) 12/06/17 17:09 Seg Neutrophils % 80.8 % (40.0-70.0) H 12/06/17 17:09 Seg Neutrophils # 6.2 K/mm3 (1.8-7.7) 12/06/17 17:09 POC ABG pH 7.349 (7.35-7.45) L 12/06/17 19:36 POC ABG pCO2 56.6 (35-45) H 12/06/17 19:36 POC ABG pO2 48 (80-105) L 12/06/17 19:36 POC ABG HCO3 31.1 12/06/17 19:36 POC ABG Total CO2 33 12/06/17 19:36 POC ABG O2 Sat 80 12/06/17 19:36 POC ABG Base Excess 6 12/06/17 19:36 FiO2 21 % 12/06/17 19:36 Sodium 133 mmol/L (137-145) L 12/10/17 06:14 Potassium 5.4 mmol/L (3.6-5.0) H 12/10/17 06:14 Chloride 83.1 mmol/L (98-107) L 12/10/17 06:14 Carbon Dioxide 40 mmol/L (22-30) H 12/10/17 06:14 Anion Gap 15 mmol/L 12/10/17 06:14 BUN 26 mg/dL (9-20) H 12/10/17 06:14 Creatinine 1.0 mg/dL (0.8-1.5) 12/10/17 06:14 Estimated GFR > 60 ml/min 12/10/17 06:14 BUN/Creatinine Ratio 26 % 12/10/17 06:14 Glucose 108 mg/dL (75-100) H 12/10/17 06:14 Calcium 9.4 mg/dL (8.4-10.2) 12/10/17 06:14 Magnesium 3.00 mg/dL (1.7-2.3) H 12/10/17 06:14
[2017-12-10] MEDS: PULMICORT IH SCH (19:34)
[2017-12-10] MEDS: BROVANA NEBU IH SCH (19:34)
[2017-12-11] MEDS: DUONEB *Not for PRN Use IH SCH ×4 (01:38→13:33)
[2017-12-11] MEDS: PULMICORT IH SCH (08:12)
[2017-12-11] MEDS: BROVANA NEBU IH SCH (08:13)
[2017-12-11 08:16] LABS: BUN/Creatinine Ratio 26; Blood Urea Nitrogen 21 mg/dL (9-20); Calcium 9.4 mg/dL (8.4-10.2); Hemolysis Index 5
[2017-12-11] MEDS ORDERED: PEPCID PO SCH (10:00)
[2017-12-11] MEDS ORDERED: DELTASONE PO SCH (10:00)
[2017-12-11] MEDS: SODIUM CHLORIDE FLUSH SYRINGE 10 ML IV SCH ×2 (11:50→11:51)
[2017-12-11] MEDS: ZITHROMAX PO SCH (11:50)
--- NOTE | 2017-12-11 16:09 | Discharge Summary ---
Providers - Providers Date of Admission: 12/06/17 20:10 Date of discharge: 12/11/17 Attending physician: LYNDA AGUILERA 12/08/17 06:38 Consult to Physician [CONS] Routine Comment: Consulting Provider: BENEDICT GOLDBERG Physician Instructions: Reason For Exam: COPD exacerbation Primary care physician: VASCULAR ULTRASOUND TECHNOLOGIST Hospitalization Condition: Stable Hospital course: --Hyperkalemia; patient has bottles of Gatorade at the bedside Advised not to drink in view of hyperkalemia Kayexalate, closely monitor potassium levels and adjust treatment --COPD exacerbation Tapering doses of IV steroid therapy, supplemental oxygen, nebulizer therapy, empiric antibiotic therpay --Acute bronchitis/pneumonitis; due to acute exacerbation of COPD Continue empiric antibiotics -- Acute hypoxic respiratory failure due to COPD exacerbation, Supplemental oxygen, nebulizer therapy, NIPPV as clinically indicated, pulse oximetry --Patient is hypoxemic, room air and ambulating O2 sats less than 87% DC planning per case management, home health service Patient needs Home oxygen, 2-3 L nasal cannula oxygen at discharge Disposition: DC-01 TO HOME OR SELFCARE Time spent for discharge: 32 min Core Measure Documentation - Palliative Care Palliative Care/ Comfort Measures: Not Applicable - Core Measures Any of the following diagnoses?: none Exam - Constitutional Vitals: Temp Pulse Resp BP Pulse Ox 98.1 F 64 20 120/67 100 12/11/17 07:23 12/11/17 07:23 12/11/17 07:23 12/11/17 07:23 12/11/17 07:23 General appearance: Present: no acute distress, cachectic, disheveled - EENT Eyes: Present: PERRL, EOM intact - Neck Neck: Present: supple, normal ROM - Respiratory Respiratory effort: normal Respiratory: bilateral: diminished, negative: rales, rhonchi, wheezing - Cardiovascular Rhythm: regular Heart Sounds: Present: S1 & S2 - Extremities Extremities: no ischemia, No edema - Abdominal General gastrointestinal: Present: soft, non-tender, non-distended, normal bowel sounds - Integumentary Integumentary: Present: clear, warm - Musculoskeletal Musculoskeletal: strength equal bilaterally, generalized weakness - Psychiatric Psychiatric: appropriate mood/affect, intact judgment & insight - Neurologic Neurologic: CNII-XII intact, moves all extremities Plan Activity: advance as tolerated, fall precautions Diet: low salt Additional Instructions: Evaluated for home oxygen; O2 sats reasonable, no need for home O2. If you have chest pain or shortness of breath, contact M.D. or go to emergency room Follow up with: DAVE OSUNA MD [Staff Physician] - 3-5 Days (Dr. Osuna is a electronic systems technician. Please follow-up with her for further evaluation) TERESO HENDERSON MD [Staff Physician] - 3-5 Days (Dr. Paul is a primary physician. Please follow up with him to be established as a patient) CHAY GAMA MD [Staff Physician] - 7 Days Prescriptions: ALBUTEROL Inhaler [Proair] 2 puff IH QID PRN #1 inhalation PRN Reason: Shortness Of Breath ALBUTEROL Inhaler [ProAir HFA Inhaler] 2 puff IH QID PRN #1 inhalation PRN Reason: Shortness Of Breath ALBUTEROL NEB's [Proventil 0.083% NEBS] 2.5 mg IH TID PRN #90 ml PRN Reason: Wheezing Azithromycin [Zithromax Z-LORENZO] 0 mg PO DAILY #1 tab Prednisone [predniSONE 10 mg (6-Day Pack, 21 Tabs)] 10 mg PO .TAPER #1 tab.ds.pk Prednisone [predniSONE 10 mg (6-Day Pack, 21 Tabs)] 10 mg PO .TAPER #1 tab.ds.pk
[2017-12-11 17:38] VITALS: BP 131/89
== END 2017-12-11 17:30 | disposition home or self-care (01) | DRG 193 ==
LOC: ED 16:19 → 3A 20:10
PROVIDERS: ADMIT Internal Medicine; ATTEND Internal Medicine
PROC: 4A033R1 Measurement of Arterial Saturation, Peripheral, Percutaneous Approach (ICD-10-PCS; principal; 2017-12-06)
DX: J18.9 Pneumonia, unspecified organism (principal); J96.01 Acute respiratory failure with hypoxia; J44.1 Chronic obstructive pulmonary disease with (acute) exacerbation; E87.3 Alkalosis; J44.0 Chronic obstructive pulmonary disease with (acute) lower respiratory infection; E87.5 Hyperkalemia; J20.9 Acute bronchitis, unspecified; Z87.891 Personal history of nicotine dependence
CPT/HCPCS: 36415; 71045; 80048; 82803; 83735; 84132; 85025; 93005; 93010; 94640; 94760; 99285; J0456; J1650; J1815; J2405; J2920; J3475; J7050; J7512